=== PATIENT | female | born 1970 | race Caucasian/White ===

== ENCOUNTER 2017-08-13 05:55 | Emergency (ER) | payer SELFPAY ==
[2017-08-13 05:56] VITALS: BP 149/99; PULSE 101; RESP 15; TEMP 36.9; O2SAT 98; BMI 25.7
--- NOTE | 2017-08-13 06:25 | EKG12_ITS ---
Test Reason : ABD PAIN Blood Pressure : / mmHG Vent. Rate : 072 BPM Atrial Rate : 072 BPM P-R Int : 148 ms QRS Dur : 084 ms QT Int : 396 ms P-R-T Axes : 074 053 071 degrees QTc Int : 433 ms Normal sinus rhythm Poor R wave progression Confirmed by KEMAR STAHL, IMAN ([id number]), food editor THIERRY JOY ([id number] on 08/14/2017 3:15:34 PM Referred By: SLICK Confirmed By:IMAN REINOSO MD
--- NOTE | 2017-08-13 06:25 | RAD_ITS ---
STUDY: X-RAY CHEST REASON FOR EXAM: Female, 47 years old. Left upper quadrant abdominal pain since Sunday. TECHNIQUE: Single AP portable view of the chest. COMPARISON: None. FINDINGS: The lungs are mildly hyperexpanded. There is no demonstrated pulmonary infiltrate. There is no demonstrated pleural abnormality. Normal size heart. Normal mediastinum and rosario. Normal visualized pulmonary arteries. Normal visualized aortic arch and descending thoracic aorta. Normal visualized thoracic spine. Normal visualized ribs, clavicles, and shoulders. There is no demonstrated abnormality of the visualized soft tissue structures of the upper abdomen. RAD/Chest 1 View (Portable) IMPRESSION: Mild hyperexpansion of lungs, suggesting COPD. No evidence for acute cardiopulmonary pathology. Electronically Signed: Kings Godfrey MD at 6:58 EDT , Service support ,
--- NOTE | 2017-08-13 06:26 | CT_ITS ---
STUDY: CT ABDOMEN AND PELVIS WITH CONTRAST REASON FOR EXAM: Female, 47 years old. Worsening left upper quadrant pain. RADIATION DOSAGE (If Supplied By Facility): CTDIvol = ( 12.54 ) mGy, DLP = ( 557.28 ) mGycm TECHNIQUE: Transaxial images were obtained from the dome of the diaphragm to the symphysis pubis without oral contrast. 100mL ml of Isovue 300 contrast was administered. Sagittal and coronal images were reconstructed. Individualized dose optimization techniques were used for this CT. COMPARISON: None. FINDINGS: The visualized lung bases are unremarkable. The visualized portions of the heart are within normal limits. There is a 2.1 cm x 1.5 cm hypodense nodule with marginal peripheral enhancement in the midportion of the right lobe of the liver adjacent to the gamal hepatis. This may represent a small hemangioma. Normal gallbladder and extrahepatic biliary system. Normal spleen. Normal pancreas. Normal bilateral adrenal glands. A 1 cm cyst is seen in the anterior upper pole of the right kidney. Normal left kidney. Normal visualized stomach. Normal small intestine. Normal colon. The appendix is visualized and appears normal. There is scattered atherosclerotic calcification of the abdominal aorta, without a demonstrated aneurysm. Normal inferior vena cava. Normal retroperitoneum. Normal urinary bladder. There is a small umbilical hernia containing fat. Normal osseous structures. CT/Abdomen/Pelvis W IV Cont ONLY IMPRESSION: Findings suggestive of a 2.1 cm x 1.5 cm hemangioma in the right lobe of the liver adjacent to the gamal hepatis. Electronically Signed: Hunter Novak MD at 8:22 EDT Tel [phone], Service support ,
[2017-08-13] MEDS: 0.9% Normal Saline 1,000 ML 1000 ML IV (06:47)
[2017-08-13] MEDS: Ondansetron 4 MG/2 ML Vial IV (06:48)
[2017-08-13 07:00] LABS: Absolute Lymphocyte Count 2.56 X10^3/ul (0.83-4.51); Absolute Neutrophil Count 3.8 X10^3/uL (2.0-7.7); Basophil# 0.03 X10^3/uL; Basophil% 0.4 % (0-1); Eosinophil# 0.18 X10^3/uL; Eosinophils% 2.5 % (0-5); Hematocrit 41.1 % (37-47); Hemoglobin 13.4 g/dl (12.0-15.0); Lymphocyte # 2.56 X10^3/ul (4.0); Lymphocyte % 36.2 % (19-41); Mean Corp Hgb Conc 32.6 g/gl (32-36); Mean Corpuscular Hgb 29.1 pg (27.0-32.0); Mean Corpuscular Volume 89.3 fL (81-99); Mean Platelet Vol. 8.9 fl (6.2-12.0); Monocyte# 0.45 X10^3/uL; Monocyte% 6.4 % (0-10); Neutrophil # 3.84 X10^3/uL (2.7-7.7); Neutrophil % 54.4 % (47-70); Platelet Count 387 K/mm3 (150-450); RBC Distribution Width CV 13.7 % (11.6-14.6); RBC Distribution Width SD 44.9 fl (35.1-43.9); White Blood Count 7.1 K/mm3 (4.4-11.0)
[2017-08-13 07:02] LABS: POSITIVE COUNT NO; POSITIVE DIFFERENTIAL NO; POSITIVE MORPHOLOGY NO
[2017-08-13 07:13] LABS: ALB/GLOB Ratio 1.1 RATIO (0.9-2.4); AST(SGOT) 16 U/L (15-37); Alanine Aminotransfer ALT/SGPT 22 U/L (13-56); Albumin, Serum 3.7 g/dL (3.2-5.0); Alkaline Phosphatase 113 U/L (45-117); Anion Gap 7 (5-15); BUN 12 mg/dL (7-18); BUN/Creat Ratio 14.8 RATIO (10-20); Calcium,Total 8.4 mg/dL (8.5-10.1); Chloride 110 mmol/L (98-107); Creatinine, Serum 0.81 mg/dL (0.55-1.02); EST Glomerular Filtration Rate 81 mL/min (>60); Est Glom Filt Rate - Afr Amer 98 mL/min (>60); Estimated Creatinine Clearance 78.92 ml/min; Globulin 3.5 g/dL (2.2-4.2); Glucose 102 mg/dL (74-106); Lipase 147 U/L (73-393); Potassium 3.9 mmol/L (3.5-5.1); Protein, Total 7.2 g/dL (6.4-8.2); Sodium Level 141 mmol/L (136-145)
[2017-08-13 07:16] LABS: Pregnancy, Serum, hCG Quali. NEGATIVE Negative (0-9 Nonpreg)
--- NOTE | 2017-08-13 07:42 | ED.VISSUMM ---
- ER Visit Summary Date of Service: 08/13/17 Chief Complaint: Left upper quadrant abdominal pain History of Present Illness: The patient is a 47 F with left upper quadrant abdominal pain that started about 4 days ago and has gradually gotten worse. Worse with laying down and breathing. Standing up seems to make it better. She never had this before in the past. Nothing seemed to bring it on. No other GI symptoms like nausea, vomiting, or diarrhea. No shortness of breath, but she does feel increasing pain when she takes a deep breath. No chest pain. No sweats or fevers. No urinary symptoms. No trauma. Physical Examination: Blood pressure 149/99. Heart rate 101. Afebrile. 98% on room air. Patient is sitting and moving comfortably. Alert and oriented and in no acute distress. Heart is slightly tachycardic but regular. Lungs are clear throughout all lopez. Left upper quadrant is tender to palpation. No guarding or rebound. Back is nontender. No CVA tenderness. Overlying skin appears normal. No focal or lateralizing neurologic abnormalities grossly. Test Results: EKG showed sinus rhythm at a rate of 72. No sign of acute ischemia or infarction pattern. CBC normal. CMP unremarkable. Lipase normal. Troponin normal. test negative. Chest x-ray showed COPD and chronic changes. Nothing acute. Urinalysis and CT abdomen pending. Emergency Department Course and Treatment: Patient presents with left upper quadrant pain. I considered cardiac, respiratory, vascular, GI, , and myofascial causes. Troponin and EKG were unremarkable. I have very little suspicion for a cardiac cause. Lungs are clear. Laboratory studies so far are unremarkable. Urinalysis is pending, but the patient has no history of kidney stones or symptoms. Awaiting CT. Patient received fluids, morphine, and Zofran while awaiting results. Patient will be signed out to the oncoming doctor to check urinalysis and CT results. I suspect the results will be unremarkable. If that is the case, and if the patient has no new or worsening symptoms, she will be referred for outpatient follow-up. She should return at any time for new or worsening issues. Treatment Plan: As above Disposition: Discharged Impression: 1. Abdominal pain left upper quadrant This note was generated with [employer] dictation software. It may contain incorrect words, spelling, and punctuation that were not noted in review of the chart prior to signing ED Disposition - Plan for ED Patient: Chief Complaint: Abd Pain Referrals: Care Physician,No Primary [Primary Care Provider] -
[2017-08-13 09:02] LABS: Bacteria 0 SEEN /hpf (None Seen); Mucous, Urine 0 SEEN /hpf (<or=2+); Red Blood Cells-Urine 0 SEEN /hpf (0-5); White Blood Cells 0 SEEN /hpf (0-5)
[2017-08-13 09:04] LABS: Glucose, Dipstick Normal (Normal); Ketone-Dipstick Negative (Negative); Leukocyte Esterase-Dipstick Negative /ul (Negative); Nitrite-Dipstick Negative (Negative); Occult Blood-Urine Negative /ul (Negative); Protein-Dipstick Negative (Negative); Urine Bilirubin Dipstick Negative (Negative); Urine Urobilinogen Normal (Normal)
[2017-08-13 09:05] LABS: Color, Urine Yellow (Yellow); Urine Clarity Clear (Clear)
[2017-08-13 09:14] LABS: Squamous Epithelial Cells - UA 0-5 SEEN /hpf (5-10)
[2017-08-13 09:32] VITALS: BP 111/65; RESP 18
--- NOTE | 2017-08-13 09:40 | ED.DEP ---
ED Disposition - Plan for ED Patient: Chief Complaint: Abd Pain Instructions: ED Abdominal Pain Unkn Cause Prescriptions: Dicyclomine HCl [Bentyl] 20 mg PO TIDAC #20 capsule Referrals: Care Physician,No Primary [Primary Care Provider] - Chiqui Doll DO [NON-STAFF] -
[2017-08-13 09:53] VITALS: BP 107/89; PULSE 78; RESP 18
== END 2017-08-13 09:53 | disposition home or self-care (01) ==
PROVIDERS: Emergency Medicine; Emergency Provider Emergency Medicine
DX: R10.12 Left upper quadrant pain (principal); R00.0 Tachycardia, unspecified; J44.9 Chronic obstructive pulmonary disease, unspecified; F17.210 Nicotine dependence, cigarettes, uncomplicated
CPT/HCPCS: 71045; 74177; 80053; 81001; 83690; 84484; 84703; 85025; 93005; 96361; 96374; 99284; J7030; Q9967; J2405